=== PATIENT | female | born 1965 | race Caucasian/White ===

== ENCOUNTER 2017-05-09 12:06 | Emergency (ER) | payer BC, OTHER ==
[2017-05-09] MEDS ORDERED: ASPIRIN 81 MG CHEWABLE TABLET PO ONE (12:40)
[2017-05-09 12:50] LABS: BASO % 0.5 % (0-6); EOS % 1.9 % (0-6); GRAN % 45.8 % (47-80); HEMATOCRIT 44.3 % (35.0-47.0); HEMOGLOBIN 15.4 gm/dl (11.6-16.0); LYMPH % 42.9 % (16-45); MEAN CELL VOLUME 89.7 fl (81-97); MEAN CORPUSCULAR HEMOGLOBIN 31.2 pg (27-33); MEAN CORPUSCULAR HGB CONC 34.8 g/dl (32-36); MEAN PLATELET VOLUME 11.7 fl (7.4-10.4); MONO % 8.9 % (0-9); PLATELET COUNT 264 K/uL (130-400); RED BLOOD COUNT 4.94 M/uL (3.80-5.40); RED CELL DISTRIBUTION WIDTH 12.7 % (11.5-14.5); WHITE BLOOD COUNT W/O DIFF 9.4 K/uL (4.2-12.2)
[2017-05-09 12:59] LABS: BLOOD UREA NITROGEN 12 mg/dL (6-20); CREATININE 0.5 mg/dL (0.5-0.9); EST GLOMERULAR FILTRATION RATE > 60 mL/min
[2017-05-09 13:02] LABS: GLUCOSE,RANDOM 104 mg/dL (74-109)
[2017-05-09 13:03] LABS: INFLUENZA A NEGATIVE (NEGATIVE); INFLUENZA B NEGATIVE (NEGATIVE)
--- NOTE | 2017-05-09 13:58 | Emergency Department Record ---
History of Present Illness - General Chief Complaint: Hypertension Stated Complaint: EVELYN,HIGH BLOOD PRESSURE Time Seen by Provider: 05/09/17 12:36 Source: Patient Mode of Arrival: Ambulatory - History of Present Illness Initial Comments: patient sob for one week and dizzy and under stress with a bad divorce and chest heaviness and a slight cough because of smoking and she started up her smoking again about 2 years ago. No vomiting or diarrhea and she feels tired. Her ex is not letting ago. Primary Dr. is Dr. Leonard Valenzuela and she call the office and they told her to go to the ED. Patient had congestion in her head about 5 days ago and that is when she was SOB and not SOB yesterday or today. patient tearful talking about her Divorce. Onset/Timin -: Week(s) Timing: Gradual onset Description: Lightheadedness, Nausea History of Same: No History of Trauma: No Severity: Severe Improves With: Nothing Worsens With: Nothing - [place] Coma Scale Eye Response: (4) Open spontaneously Motor Response: (6) Obeys commands Verbal Response: (5) Oriented Per Total: 15 - Related Data Home Medications Medication Instructions Recorded Confirmed Last Taken Hydrochlorothiazide 12.5 mg PO ASDIR 05/09/17 05/09/17 05/08/17 Metoprolol Succinate [Toprol Xl] 50 mg PO QHS 05/09/17 05/09/17 05/08/17 Allergies Allergy/AdvReac Type Severity Reaction Status Date / Time No Known Drug Allergies Allergy Verified 05/09/17 12:20 Travel Screening - Travel/Exposure Within Last 30 Days Have you traveled within the last 30 days?: No Review of Systems Reviewed: No additional complaints except as noted below Constitutional: Reports: As per HPI. Denies: Chills, Fever, Malaise, Night sweats, Weakness, Weight change Eyes: Reports: As per HPI. Denies: Eye discharge, Eye pain, Photophobia, Vision change ENT: Reports: As per HPI. Denies: Congestion, Dental pain, Ear pain, Epistaxis , Hearing loss, Throat pain Respiratory: Reports: As per HPI, Cough, Dyspnea. Denies: Hemoptysis, Stridor, Wheezes Cardiovascular: Reports: As per HPI. Denies: Arrhythmia, Chest pain, Dyspnea on exertion, Edema, Murmurs, Orthopnea, Palpitations, Paroxysmal nocturnal dyspnea, Rheumatic Fever, Syncope Endocrine: Reports: As per HPI. Denies: Fatigue, Heat or cold intolerance, Polydipsia, Polyuria Gastrointestinal: Reports: As per HPI. Denies: Abdominal pain, Constipation, Diarrhea, Hematemesis, Hematochezia, Melena, Nausea, Vomiting Genitourinary: Reports: As per HPI. Denies: Abnormal menses, Discharge, Dyspareunia, Dysuria, Frequency, Hematuria, Incontinence, Retention, Urgency Musculoskeletal: Reports: As per HPI. Denies: Arthralgia, Back pain, Gout, Joint swelling, Myalgia, Neck pain Skin: Reports: As per HPI. Denies: Bruising, Change in color, Change in hair/ nails, Lesions, Pruritus, Rash Neurological: Reports: As per HPI. Denies: Abnormal gait, Confusion, Headache, Numbness, Paresthesias, Seizure, Tingling, Tremors, Vertigo, Weakness Psychiatric: Reports: As per HPI. Denies: Anxiety, Auditory hallucinations, Depression, Homicidal thoughts, Suicidal thoughts, Visual hallucinations Hematological/Lymphatic: Reports: As per HPI. Denies: Anemia, Blood Clots, Easy bleeding, Easy bruising, Swollen glands Past Medical History - SOCIAL HISTORY Smoking Status: Current every day smoker Alcohol Use: None Drug Use: None - RESPIRATORY Hx Respiratory Disorders: No - CARDIOVASCULAR Hx Cardio Disorders: Yes Hx Hypertension: Yes Hx Irregular Heartbeat: Yes - NEURO Hx Neuro Disorders: No - GI Hx GI Disorders: No - Hx Genitourinary Disorders: No - ENDOCRINE Hx Endocrine Disorders: No - MUSCULOSKELETAL Hx Musculoskeletal Disorders: No - PSYCH Hx Psych Problems: No - HEMATOLOGY/ONCOLOGY Hx Hematology/Oncology Disorders: No Family Medical History Any Significant Family History?: Yes Hx Diabetes: Brother/Sister Hx Heart Disease: Father Hx Stroke: Father Physical Exam - General General Appearance: Alert, Oriented x3, Cooperative, No acute distress - Head Head exam: Normal inspection - Eye Eye exam: Normal appearance, PERRL Pupils: Normal accommodation - ENT ENT exam: Normal exam, Mucous membranes moist, Normal external ear exam, Normal orophraynx, TM's normal bilaterally Ear exam: Normal external inspection. negative: External canal tenderness Nasal Exam: Normal inspection. negative: Discharge, Sinus tenderness Mouth exam: Normal external inspection, Tongue normal Teeth exam: Normal inspection. negative: Dental caries Throat exam: Normal inspection. negative: Tonsillar erythema, Tonsillar exudate - Neck Neck exam: Normal inspection, Full ROM. negative: Tenderness - Respiratory Respiratory exam: Normal lung sounds bilaterally. negative: Respiratory distress - Cardiovascular Cardiovascular Exam: Regular rate, Normal rhythm, Normal heart sounds - GI/Abdominal GI/Abdominal exam: Soft, Normal bowel sounds. negative: Tenderness - Rectal Rectal exam: Deferred - exam: Deferred - Extremities Extremities exam: Normal inspection, Full ROM, Normal capillary refill. negative: Tenderness - Back Back exam: Reports: Normal inspection, Full ROM. Denies: Muscle spasm, Rash noted, Tenderness - Neurological Neurological exam: Alert, Normal gait, Oriented X3, Reflexes normal - Psychiatric Psychiatric exam: Normal affect, Normal mood - Skin Skin exam: Dry, Intact, Normal color, Warm Course Vital Signs 05/09/17 12:14 Temperature 98.5 F Pulse Rate 79 Respiratory 20 Rate Blood Pressure 165/95 Pulse Ox 97 - Reevaluation(s) Reevaluation #1: my reading of chest xray on lateral looks like a pulmonary nodule but reading by v rad was negative.I recommended the patient get another chest xray in 2 weeks 05/09/17 15:04 Medical Decision Making - Data Complexity MDM Data: Labs Ordered and/or Reviewed, X-Ray Ordered and/or Reviewed (spot on lateral xray radiologist read as negative ), EKG Ordered and/or Reviewed (No acute changes) - Lab Data Result diagrams: 05/09/17 12:30 05/09/17 12:30 Lab Results 05/09/17 05/09/17 05/09/17 Range/Units 12:30 12:30 12:30 WBC 9.4 (4.2-12.2) K/uL RBC 4.94 (3.80-5.40) M/uL Hgb 15.4 (11.6-16.0) gm/dl Hct 44.3 (35.0-47.0) % MCV 89.7 (81-97) fl MCH 31.2 (27-33) pg MCHC 34.8 (32-36) g/dl RDW 12.7 (11.5-14.5) % Plt Count 264 (130-400) K/uL MPV 11.7 H (7.4-10.4) fl Gran % 45.8 L (47-80) % Lymphocytes % 42.9 (16-45) % Monocytes % 8.9 (0-9) % Eosinophils % 1.9 (0-6) % Basophils % 0.5 (0-6) % APTT 27.3 (24.5-39.1) SECONDS Sodium 137 (136-145) mmol/L Potassium 3.9 (3.4-4.5) mmol/L Chloride 99 (98-107) mmol/L Carbon Dioxide 24.0 (22-29) mmol/L Anion Gap 14.0 (7-16) BUN 12 (6-20) mg/dL Creatinine 0.5 (0.5-0.9) mg/dL Estimated GFR > 60 mL/min Random Glucose 104 (74-109) mg/dL Calcium 9.3 (8.6-10.0) mg/dL Troponin T < 0.010 (0-0.010) ng/mL Influenza Type A Ag (NEGATIVE) Influenza Type B Ag (NEGATIVE) 05/09/17 Range/Units 12:38 WBC (4.2-12.2) K/uL RBC (3.80-5.40) M/uL Hgb (11.6-16.0) gm/dl Hct (35.0-47.0) % MCV (81-97) fl MCH (27-33) pg MCHC (32-36) g/dl RDW (11.5-14.5) % Plt Count (130-400) K/uL MPV (7.4-10.4) fl Gran % (47-80) % Lymphocytes % (16-45) % Monocytes % (0-9) % Eosinophils % (0-6) % Basophils % (0-6) % APTT (24.5-39.1) SECONDS Sodium (136-145) mmol/L Potassium (3.4-4.5) mmol/L Chloride (98-107) mmol/L Carbon Dioxide (22-29) mmol/L Anion Gap (7-16) BUN (6-20) mg/dL Creatinine (0.5-0.9) mg/dL Estimated GFR mL/min Random Glucose (74-109) mg/dL Calcium (8.6-10.0) mg/dL Troponin T (0-0.010) ng/mL Influenza Type A Ag Negative (NEGATIVE) Influenza Type B Ag Negative (NEGATIVE) Disposition Clinical Impression: Viral syndrome Disposition: Home, Self-Care Condition: (1) Good Instructions: Viral Syndrome (ED) Additional Instructions: follow up with primary Dr in 2-5 days stop smoking recommended a repeat chest xray in 2 weeks. Forms: Patient Portal Access Time of Disposition: 14:57 Quality - Quality Measures Quality Measures: N/A - Blood Pressure Screening Does Patient Have Any of the Following: No Blood Pressure Classification: Hypertensive Reading Systolic Measurement: 165 Diastolic Measurement: 95 Screening for High Blood Pressure: < First Hypertensive BP, F/U Documented > [ G8950] First Hypertensive Follow-up Interventions: Referral to alternative/primary care provider.
--- NOTE | 2017-05-10 12:38 | RADIOLOGY REPORT ---
EXAM: CHEST, TWO VIEWS HISTORY: SHORTNESS OF BREATH, DIZZINESS, NAUSEA. TECHNIQUE: PA and lateral views of the chest were obtained. A preliminary report was provided by [facility]. Comparison: None. FINDINGS: The heart size is normal. No definite acute infiltrate seen and no pleural effusion or pneumothorax evident, however, on the PA view there is a suggestion of a faint nodule approximately 9 mm in size in the left mid lung. Follow-up chest CT is suggested for further evaluation. Minor spurring in the spine. IMPRESSION: 1. POSSIBLE 9 MM NODULE LEFT MID LUNG. FOLLOW-UP CHEST CT IS SUGGESTED. 2. REPORT OF THIS WAS DISCUSSED BY MYSELF WITH DR. ELIZA MACKEY OF THE EMERGENCY DEPARTMENT AT PHONE NUMBER [phone] AT THE TIME OF DICTATION AT APPROXIMATELY 3:50 P.M. ON 05/09/17. 3. MILD SPURRING IN THE SPINE. JOB NUMBER: [id number] MTDD
== END 2017-05-09 15:19 | disposition home or self-care (01) ==
LOC: ER 12:06
DX: B34.9 Viral infection, unspecified (principal); R07.89 Other chest pain; R42 Dizziness and giddiness; R06.02 Shortness of breath; R11.0 Nausea; R51 Headache; F17.210 Nicotine dependence, cigarettes, uncomplicated
CPT/HCPCS: 71046; 80048; 84484; 85025; 85730; 87400; 93005; 93010; 99284